=== PATIENT | male | born 1980 | race Two or more races ===

== ENCOUNTER 2020-09-20 00:51 | Emergency (ER) | payer OTHER ==
[2020-09-20 01:05] VITALS: BP 119/75; PULSE 67; TEMP 98; BMI 24.3
== END 2020-09-20 04:48 | disposition home or self-care (01) ==
LOC: JER 00:51
DX: Z11.52 Encounter for screening for COVID-19 (principal)
CPT/HCPCS: 99283-25; C9803; U0003; U0005